=== PATIENT | male | born 1975 | race Caucasian/White ===

== ENCOUNTER 2017-04-14 18:25 | Emergency (ER) | payer OTHER ==
[2017-04-14] MEDS ORDERED: ALBUTEROL SULFATE 2.5 MG/3 ML NEBU. CONT NEB ONE (18:45)
[2017-04-14] MEDS ORDERED: ASPIRIN 81 MG TAB.CHEW PO ONE (18:45)
[2017-04-14 18:53] LABS: BASO # 0.1 x10^3/uL (0.0-0.2); BASO % 1 % (0-3); EOS # 0.8 x10^3/uL (0.0-0.7); EOS % 8 % (0-3); HEMATOCRIT 49.9 % (39.0-53.0); HEMOGLOBIN 17.3 g/dL (13.0-17.5); LYMPH # 2.4 x10^3/uL (1.0-4.8); LYMPH % 23 % (24-48); MEAN CORPUSCULAR HEMOGLOBIN 34 pg (25-35); MEAN CORPUSCULAR HGB CONC 35 g/dL (31-37); MEAN CORPUSCULAR VOLUME 99 fL (79-100); MONO # 0.7 x10^3/uL (0.0-1.1); MONO % 7 % (0-9); NEUT # 6.5 x10^3uL (1.8-7.7); NEUT % 62 % (31-73); PLATELET COUNT 261 x10^3/uL (140-400); RED BLOOD COUNT 5.04 x10^6/uL (4.30-5.70); RED CELL DISTRIBUTION WIDTH 13.1 % (11.5-14.5); WHITE BLOOD COUNT 10.5 x10^3/uL (4.0-11.0)
[2017-04-14 19:08] LABS: CALCIUM 9.6 mg/dL (8.5-10.1); CREATININE 1.2 mg/dL (0.7-1.3); GFR 66.7; POTASSIUM 3.8 mmol/L (3.5-5.1)
--- NOTE | 2017-04-14 19:21 | EKG ---
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
[2017-04-14 19:30] VITALS: BP 128/93
--- NOTE | 2017-04-14 20:33 | PHYS DOC ---
Past History Past Medical History: Anxiety, Asthma, Hypertension, Other Additional Smoking Information: Admits to smoking intermittently for about 10 years, states he has not smoked for 3-4 years Additional Alcohol Information: hx of heavy alcohol use Adult General Chief Complaint Chief Complaint: CHEST PAIN HPI HPI Patient is a 41 year old M who presents with sudden onset of dull constant central chest pain associated with nausea, diaphoresis and shortness of breath. He states that his symptoms came on after being active while he was at rest. He had been weeding outside and then had sat down for dinner. He ate his dinner and then after dinner he developed symptoms. He states that dinner was a bland chicken noodle soup. He does have a history of hypertension controlled with medications. He has a history of smoking but quit about 3-4 years ago. He has no significant family history of cardiac disease. He has no other associated symptoms and no other exacerbating or alleviating factors. Review of Systems Review of Systems Constitutional: Denies fever or chills [] Eyes: Denies change in visual acuity, redness, or eye pain [] HENT: Denies nasal congestion or sore throat [] Respiratory: Denies cough or shortness of breath [] Cardiovascular: No additional information not addressed in HPI [] GI: Denies abdominal pain, nausea, vomiting, bloody stools or diarrhea [] : Denies dysuria or hematuria [] Musculoskeletal: Denies back pain or joint pain [] Integument: Denies rash or skin lesions [] Neurologic: Denies headache, focal weakness or sensory changes [] Endocrine: Denies polyuria or polydipsia [] Family History Family History No significant family history noted Current Medications Current Medications Current Medications Medications (Trade) Dose Ordered Sig/Meena Start Time Stop Time Status Last Admin Dose Admin Albuterol Sulfate (Ventolin) 10 mg 1X ONCE 04/14/17 18:45 04/14/17 18:46 DC 04/14/17 18:51 10 MG Aspirin (Children'S Aspirin) 324 mg 1X ONCE 04/14/17 18:45 04/14/17 18:46 DC 04/14/17 18:46 324 MG Allergies Allergies Allergies Coded Allergies Type Severity Reaction Last Updated Verified No Known Drug Allergies 04/14/17 No Physical Exam Physical Exam Constitutional: Well developed, well nourished, no acute distress, non-toxic appearance. []Diaphoretic HENT: Normocephalic, atraumatic, bilateral external ears normal, oropharynx moist, no oral exudates, nose normal. [] Eyes: EOMI, conjunctiva normal, no discharge. [] Neck: Normal range of motion, no tenderness, supple, no stridor. [] Cardiovascular:Heart rate regular rhythm, no murmur [] Lungs & Thorax: Bilateral breath sounds clear to auscultation [] Abdomen: Bowel sounds normal, soft, no tenderness, no masses, no pulsatile masses. [] Skin: Warm, dry, no erythema, no rash. [] Back: No tenderness, no CVA tenderness. [] Extremities: No tenderness, no cyanosis, no clubbing, ROM intact, no edema. [] Neurologic: Alert and oriented X 3, normal motor function, normal sensory function, no focal deficits noted. [] Psychologic: Affect normal, judgement normal, mood normal. [] Current Patient Data Vital Signs Vital Signs Date Time Temp Pulse Resp B/P (MAP) Pulse Ox O2 Delivery O2 Flow Rate FiO2 04/14/17 19:55 95 Room Air 04/14/17 19:30 102 20 128/93 (105) 04/14/17 18:25 98.0 Lab Results Laboratory Tests Test 04/14/17 18:30 White Blood Count 10.5 x10^3/uL (4.0-11.0) Red Blood Count 5.04 x10^6/uL (4.30-5.70) Hemoglobin 17.3 g/dL (13.0-17.5) Hematocrit 49.9 % (39.0-53.0) Mean Corpuscular Volume 99 fL (79-100) Mean Corpuscular Hemoglobin 34 pg (25-35) Mean Corpuscular Hemoglobin Concent 35 g/dL (31-37) Red Cell Distribution Width 13.1 % (11.5-14.5) Platelet Count 261 x10^3/uL (140-400) Neutrophils (%) (Auto) 62 % (31-73) Lymphocytes (%) (Auto) 23 % (24-48) L Monocytes (%) (Auto) 7 % (0-9) Eosinophils (%) (Auto) 8 % (0-3) H Basophils (%) (Auto) 1 % (0-3) Neutrophils # (Auto) 6.5 x10^3uL (1.8-7.7) Lymphocytes # (Auto) 2.4 x10^3/uL (1.0-4.8) Monocytes # (Auto) 0.7 x10^3/uL (0.0-1.1) Eosinophils # (Auto) 0.8 x10^3/uL (0.0-0.7) H Basophils # (Auto) 0.1 x10^3/uL (0.0-0.2) D-Dimer (Jessy) 0.21 mg/L (0.00-0.50) Sodium Level 139 mmol/L (136-145) Potassium Level 3.8 mmol/L (3.5-5.1) Chloride Level 102 mmol/L (98-107) Carbon Dioxide Level 28 mmol/L (21-32) Anion Gap 9 (6-14) Blood Urea Nitrogen 17 mg/dL (8-26) Creatinine 1.2 mg/dL (0.7-1.3) Estimated GFR (Cockcroft-Gault) 66.7 Glucose Level 113 mg/dL (70-99) H Calcium Level 9.6 mg/dL (8.5-10.1) Creatine Kinase 160 U/L (39-308) Creatine Kinase MB (Mass) 1.3 ng/mL (0.0-3.6) Creatine Kinase MB Relative Index 0.8 % (0-4) Troponin I Quantitative < 0.017 ng/mL (0-0.055) EKG EKG Sinus tachycardia. Q waves noted. No ST changes, normal QRS interval, normal QT interval Radiology/Procedures Radiology/Procedures Clive did receive a 1 hour continuous nebulized albuterol treatment. He also received aspirin 324 mg chewed by mouth. His symptoms improved during his stay. Prior to discharge he states that he had no symptoms at all. Course & Med Decision Making Course & Med Decision Making Pertinent Labs and Imaging studies reviewed. (See chart for details) Admission was recommended to Clive his symptoms and risk factors. Initially Clive did agree to admission however as his symptoms improved he decided that he would feel more comfortable at home. Further laboratory evaluation was offered and declined. Greater than 30 minutes was spent counseling Clive on the risks associated with coronary artery disease as a cause of his symptoms. Risk of and permanent disability was discussed. Clive expressed understanding that his risk of and permanent disability is increased as result of this episode without further evaluation for coronary artery disease. His symptoms did resolve prior to discharge. Dragon Disclaimer Dragon Disclaimer This chart was dictated in whole or in part using Voice Recognition software in a busy, high-work load, and often noisy Emergency Department environment. It may contain unintended and wholly unrecognized errors or omissions. Departure Departure: Impression: Primary Impression: Chest pain Disposition: HOME, SELF-CARE Condition: STABLE Referrals: DARIO ESPOSITO DO (PCP) Patient Instructions: Chest Pain (Nonspecific), Chest Pain Observation Additional Instructions: Clive was seen in the emergency department for chest pain. Admission was discussed and declined. He was found to have normal labs and normal EKG. His symptoms did resolve with breathing treatments. He was strongly advised return to the emergency room if he develops new or worsening symptoms. He was also advised follow-up with his primary care doctor as soon as possible for further management. Problem Qualifiers Primary Impression: Chest pain Chest pain type: unspecified Qualified Codes: R07.9 - Chest pain, unspecified VENICE DURBIN MD Apr 14, 2017 20:33
== END 2017-04-14 20:45 | disposition home or self-care (01) ==
LOC: ER 18:25
DX: R07.89 Other chest pain (principal); I10 Essential (primary) hypertension; J45.909 Unspecified asthma, uncomplicated; F41.9 Anxiety disorder, unspecified; Z87.891 Personal history of nicotine dependence
CPT/HCPCS: 36415; 80048; 82553; 84484; 85025; 85379; 93005; 94644; 99285; J7613

== ENCOUNTER 2017-06-30 19:36 | Emergency (ER) | payer OTHER ==
[~2017-06-30] VITALS: Ht 185.4 cm; Wt 131.7 kg
[2017-06-30] MEDS ORDERED: IV NORMAL SALINE 1,000ML 1,000 ML IV SCH (19:54)
[2017-06-30] MEDS ORDERED: KETOROLAC 30 MG/ML VIAL. IV ONE (20:00)
[2017-06-30] MEDS ORDERED: ACETAMINOPHEN 325 MG TABLET PO ONE (20:00)
[2017-06-30] MEDS ORDERED: 0.9 % SODIUM CHLORIDE 10 ML DISP.SYRIN. IV ONE (20:00)
--- NOTE | 2017-06-30 20:01 | PHYS DOC ---
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 The patient does workout every on everyday basis lifting heavy weights noticed some increased myalgias of his legs and arms and increased sweating with low-grade fever at home he noted fever to 103.2 taking Tylenol to improve his symptoms. He was brought in today by his because his symptoms have not improved despite taking Tylenol or over-the- counter medications. He denies any chest pain, shortness of breath, sore throat , ear pain ear drainage facial pain but is having some nasal drainage with a nonproductive cough and fevers. Patient denies any sick contacts recent antibiotics or travel outside the country. Patient denies any change in voice headache or other symptoms. Review of Systems Review of Systems Constitutional: Documented fever to 103.2 with chills Eyes: Denies change in visual acuity, redness, or eye pain [] HENT: He has had some nasal congestion clear with no sore throat Respiratory: Does have a nonproductive cough but no shortness of breath Cardiovascular: No additional information not addressed in HPI [] GI: Denies abdominal pain, nausea, vomiting, bloody stools or diarrhea [] : Denies dysuria or hematuria [] Musculoskeletal: Denies back pain or joint pain [] Integument: Denies rash or skin lesions [] Neurologic: Denies headache, focal weakness or sensory changes he feels generally achy in all joints and lower legs and arms[] Endocrine: Denies polyuria or polydipsia [] All other systems were reviewed and found to be within normal limits, except as documented in this note. Current Medications Current Medications Current Medications Medications (Trade) Dose Ordered Sig/Meena Start Time Stop Time Status Last Admin Dose Admin Acetaminophen (Tylenol) 1,000 mg 1X ONCE 06/30/17 20:00 06/30/17 20:01 UNV Ketorolac Tromethamine (Toradol) 30 mg 1X ONCE 06/30/17 20:00 1/21/18 20:01 UNV Sodium Chloride 1,000 ml @ 1,000 mls/hr Q1H 06/30/17 19:54 06/30/17 20:53 UNV Sodium Chloride (Normal Saline Flush) 10 ml 1X ONCE 06/30/17 20:00 06/30/17 20:01 UNV Allergies Allergies Allergies Coded Allergies Type Severity Reaction Last Updated Verified No Known Drug Allergies 04/14/17 No Physical Exam Physical Exam Vital signs of the patient's chart patient noted to be mildly hypertensive patient is febrile and tachycardic appropriate for fever Constitutional: Well developed, well nourished, no acute distress, non-toxic appearance. Patient is diaphoretic on appearance he is somewhat flushed but is responsive and normal.[] HENT: Normocephalic, atraumatic, bilateral external ears normal, oropharynx moist no erythema, no oral exudates, nose normal. [] Eyes: PERRLA, EOMI, conjunctiva normal, no discharge. [] Neck: Normal range of motion, no tenderness, supple, no stridor. No anterior cervical lymphadenopathy[] Cardiovascular patient demonstrates a tachycardia with no murmurs Rubs Heart Rate Greater Than 130 Lungs & Thorax: Bilateral breath sounds clear to auscultation [] Abdomen: Bowel sounds normal, soft, no tenderness, no masses, no pulsatile masses. [] Skin: Warm, no rash. He is diaphoretic. [] Back: No tenderness, no CVA tenderness. [] Extremities: No tenderness, no cyanosis, no clubbing, ROM intact, no edema. [] Neurologic: Alert and oriented X 3, normal motor function, normal sensory function, no focal deficits noted. [] Psychologic: Affect normal, judgement normal, mood normal. [] EKG EKG []EKG done on arrival read by me demonstrates at 8:05 PM 06/30/2017 sinus tachycardia with heart rate of 1:30 there is a P wave there were QRS DE intervals 138, QRS is 98, QTC is 421. This is a normal sinus rhythm tachycardia there is no ST segment or T-wave changes consistent with acute cardiac ischemia. This is normal EKG otherwise other than rate Radiology/Procedures Radiology/Procedures []Patient's PA and lateral chest x-ray no specific infiltrate, there is no pleural effusion, cardiomegaly. Course & Med Decision Making Course & Med Decision Making Patient presented with fever, URI-like symptoms, influenza-like symptoms for last 2 days. He is influenza swab negative a and P, white blood cell count is normal at 6.2. There is no left shift H&H is normal. Patient's urinalysis is essentially normal other than some trace white blood cells and occasional epithelia cells patient has no bacteria, normal urine specific gravity. CMP is also normal troponin is normal proBNP is normal. Over the course of his evaluation patient received fluids Tylenol Toradol and supportive care his tachycardia is improved from the mid 130s to 105-110 is feeling markedly better he is no longer diaphoretic and his fevers improved. Although patient has a negative flu swab I believe patient does have influenza based on his clinical symptoms and presentation. I will provide him a dose of Tamiflu here and provide him Tylenol guaifenesin and Naprosyn for symptoms continuously as well as a few days off with forced hydration. Laboratory Tests Test 06/30/17 19:40 06/30/17 19:55 06/30/17 20:15 Influenza Type A (Rapid) Negative (NEGATIVE) Influenza Type B (Rapid) Negative (NEGATIVE) White Blood Count 6.2 x10^3/uL (4.0-11.0) Red Blood Count 4.65 x10^6/uL (4.30-5.70) Hemoglobin 15.7 g/dL (13.0-17.5) Hematocrit 45.5 % (39.0-53.0) Mean Corpuscular Volume 98 fL (79-100) Mean Corpuscular Hemoglobin 34 pg (25-35) Mean Corpuscular Hemoglobin Concent 34 g/dL (31-37) Red Cell Distribution Width 12.9 % (11.5-14.5) Platelet Count 190 x10^3/uL (140-400) Neutrophils (%) (Auto) 85 % (31-73) H Lymphocytes (%) (Auto) 7 % (24-48) L Monocytes (%) (Auto) 8 % (0-9) Eosinophils (%) (Auto) 1 % (0-3) Basophils (%) (Auto) 0 % (0-3) Neutrophils # (Auto) 5.3 x10^3uL (1.8-7.7) Lymphocytes # (Auto) 0.4 x10^3/uL (1.0-4.8) L Monocytes # (Auto) 0.5 x10^3/uL (0.0-1.1) Eosinophils # (Auto) 0.0 x10^3/uL (0.0-0.7) Basophils # (Auto) 0.0 x10^3/uL (0.0-0.2) Sodium Level 139 mmol/L (136-145) Potassium Level 4.1 mmol/L (3.5-5.1) Chloride Level 105 mmol/L (98-107) Carbon Dioxide Level 22 mmol/L (21-32) Anion Gap 12 (6-14) Blood Urea Nitrogen 15 mg/dL (8-26) Creatinine 1.3 mg/dL (0.7-1.3) Estimated GFR (Cockcroft-Gault) 60.5 Glucose Level 141 mg/dL (70-99) H Calcium Level 9.3 mg/dL (8.5-10.1) Creatine Kinase 147 U/L (39-308) Creatine Kinase MB (Mass) < 0.5 ng/mL (0.0-3.6) Creatine Kinase MB Relative Index 0.3 % (0-4) Troponin I Quantitative < 0.017 ng/mL (0-0.055) PI-Kqt-H-Type Natriuretic Peptide 120 pg/mL (0-124) Urine Collection Type Unknown Urine Color Yellow Urine Clarity Clear Urine pH 5.5 Urine Specific Hanna 1.020 Urine Protein Neg (NEG-TRACE) Urine Glucose (UA) Neg mg/dL (NEG) Urine Ketones (Stick) Neg mg/dL (NEG) Urine Blood Neg (NEG) Urine Nitrite Neg (NEG) Urine Bilirubin Neg (NEG) Urine Urobilinogen Dipstick 0.2 mg/dL (0.2 mg/dL) Urine Leukocyte Esterase Neg (NEG) Urine RBC 0 /HPF (0-2) Urine WBC Occ /HPF (0-4) Urine Squamous Epithelial Cells Occ /LPF Urine Bacteria 0 /HPF (0-FEW) Urine Mucus Slight /LPF Pertinent Labs and Imaging studies reviewed. (See chart for details) I believe the tachycardia is related to the fever and decreased fluid intake as well as increased insensible losses from the fever and sweating. Patient's heart rate is improved significant only with fever control and patient's BUN/ creatinine are normal []discharge: I've spoken with the patient and/or caregivers. I've explained the patient's condition, diagnosis and treatment plan based on information available to me at this time. I've answered the patient's and/or caregivers questions and addressed any concerns. The patient and/or caregivers have a good understanding the patient's diagnosis, condition and treatment plan as can be expected at this point. Vital signs have been stabilized. The patient's condition is stable for discharge from the emergency department. The patient will pursue further outpatient evaluation with her primary care provider or other designated consulting physician as outlined in the discharge instructions. Patient and/or caregivers are agreeable to this plan of care and follow-up instructions have been explained in detail. The patient and/or caregivers have received these instructions in written format and expressed understanding of these discharge instructions. The patient and her caregivers are aware that if any significant change in condition or worsening of symptoms should prompt him to immediately return to this of the closest emergency department. If an emergent department is not readily available I would encourage him to call 911. Jamison Disclaimer Jamison Disclaimer This electronic medical record was generated, in whole or in part, using a voice recognition dictation system. Departure Departure: Impression: Primary Impression: Fever Additional Impressions: Flu syndrome Tachycardia Disposition: 01 HOME, SELF-CARE Condition: IMPROVED Referrals: DARIO ESPOSITO DO (PCP) Patient Instructions: Influenza Facts, Influenza Tests, Influenza Virus Vaccine injection (Fluarix) Additional Instructions: discharge: I've spoken with the patient and/or caregivers. I've explained the patient's condition, diagnosis and treatment plan based on information available to me at this time. I've answered the patient's and/or caregivers questions and addressed any concerns. The patient and/or caregivers have a good understanding the patient's diagnosis, condition and treatment plan as can be expected at this point. Vital signs have been stabilized. The patient's condition is stable for discharge from the emergency department. The patient will pursue further outpatient evaluation with her primary care provider or other designated consulting physician as outlined in the discharge instructions. Patient and/or caregivers are agreeable to this plan of care and follow-up instructions have been explained in detail. The patient and/or caregivers have received these instructions in written format and expressed understanding of these discharge instructions. The patient and her caregivers are aware that if any significant change in condition or worsening of symptoms should prompt him to immediately return to this of the closest emergency department. If an emergent department is not readily available I would encourage him to call 911. Scripts Acetaminophen (TYLENOL) 325 Mg Tablet 1-2 TAB PO QID, #30 TAB 2 Refills Prov: KEVIN SWENSON MD 06/30/17 Oseltamivir Phosphate (TAMIFLU) 75 Mg Capsule 1 CAP PO BID, #10 CAP Prov: KEVIN SWENSON MD 06/30/17 Naproxen (NAPROSYN) 500 Mg Tablet 1 TAB PO BID, #20 TAB 1 Refill Prov: KEVIN SWENSON MD 06/30/17 Guaifenesin/Dextromethorphan (MUCINEX DM ER 1,200-60 MG TAB) 1 Each Tbmp.12hr 1 TAB PO BID, #20 TAB 1 Refill Prov: KEVIN SWENSON MD 06/30/17 Problem Qualifiers KEVIN SWENSON MD Jun 30, 2017 20:01
[2017-06-30] MEDS ORDERED: ACETAMINOPHEN 500 MG TABLET PO ONE (20:15)
[2017-06-30 20:20] LABS: BASO % 0 % (0-3); EOS % 1 % (0-3); HEMATOCRIT 45.5 % (39.0-53.0); HEMOGLOBIN 15.7 g/dL (13.0-17.5); LYMPH # 0.4 x10^3/uL (1.0-4.8); LYMPH % 7 % (24-48); MEAN CORPUSCULAR HEMOGLOBIN 34 pg (25-35); MEAN CORPUSCULAR HGB CONC 34 g/dL (31-37); MEAN CORPUSCULAR VOLUME 98 fL (79-100); MONO # 0.5 x10^3/uL (0.0-1.1); MONO % 8 % (0-9); NEUT # 5.3 x10^3uL (1.8-7.7); NEUT % 85 % (31-73); PLATELET COUNT 190 x10^3/uL (140-400); RED BLOOD COUNT 4.65 x10^6/uL (4.30-5.70); RED CELL DISTRIBUTION WIDTH 12.9 % (11.5-14.5); WHITE BLOOD COUNT 6.2 x10^3/uL (4.0-11.0)
[2017-06-30 20:29] LABS: INFLUENZA A PATIENT NEGATIVE (NEGATIVE); INFLUENZA B PATIENT NEGATIVE (NEGATIVE)
[2017-06-30 20:42] LABS: ANION GAP 12 (6-14); BLOOD UREA NITROGEN 15 mg/dL (8-26); CALCIUM 9.3 mg/dL (8.5-10.1); CARBON DIOXIDE 22 mmol/L (21-32); CHLORIDE 105 mmol/L (98-107); CREATINE KINASE 147 U/L (39-308); CREATININE 1.3 mg/dL (0.7-1.3); GFR 60.5; GLUCOSE 141 mg/dL (70-99); POTASSIUM 4.1 mmol/L (3.5-5.1); SODIUM 139 mmol/L (136-145)
[2017-06-30 20:50] LABS: BILIRUBIN,URINE NEG (NEG); CLARITY,URINE CLEAR; COLOR,URINE YELLOW; GLUCOSE,URINE NEG (NEG); NITRITE,URINE NEG (NEG); UROBILINOGEN,URINE 0.2 mg/dL (0.2 mg/dL)
[2017-06-30 20:51] LABS: BACTERIA,URINE 0 /HPF (0-FEW); RBC,URINE 0 /HPF (0-2); SQUAMOUS EPITHELIAL CELL,UR OCC /LPF; WBC,URINE OCC /HPF (0-4)
[2017-06-30 20:53] VITALS: BP 149/86
[2017-06-30] MEDS ORDERED: NAPR-683 PO (21:11)
[2017-06-30] MEDS ORDERED: GUAI1TBM10 PO (21:11)
[2017-06-30] MEDS ORDERED: ACET325T9 PO (21:11)
[2017-06-30] MEDS ORDERED: OSEL75CA PO (21:11)
--- NOTE | 2017-07-01 08:08 | RAD ---
Chest, 2 views, 06/30/2017: History: Cough and fever, asthma The heart size and pulmonary vascularity are normal. No pulmonary infiltrates are seen. There is no evidence of pleural fluid. IMPRESSION: No acute cardiopulmonary abnormality is detected.
--- NOTE | 2017-07-02 16:24 | EKG ---
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
== END 2017-06-30 21:18 | disposition home or self-care (01) ==
LOC: ER 19:36
DX: J11.1 Influenza due to unidentified influenza virus with other respiratory manifestations (principal); R00.0 Tachycardia, unspecified; J45.909 Unspecified asthma, uncomplicated; I10 Essential (primary) hypertension; F41.9 Anxiety disorder, unspecified
CPT/HCPCS: 36415; 71046; 80048; 81001; 82553; 83880; 84484; 85025; 87804; 93005; 96361; 96374; 99285; J1885; J7030